=== PATIENT | female | born 1965 | race Caucasian/White ===

== ENCOUNTER 2021-06-11 04:31 | Day surgery (SDC) | payer BC ==
[2021-06-11 11:06] VITALS: BMI 28.9
[2021-06-11] MEDS ORDERED: BUPIVACAINE HCL/PF 0.5% (5MG/ML) 10 ML VIAL ONE ×2 (13:05)
[2021-06-11] MEDS ORDERED: LIDOCAINE HCL 1%, 10 MG/ML (20ML VIAL) ONE (13:05)
[2021-06-11] MEDS ORDERED: PROPOFOL 20 ML ONE ×3 (13:07→14:01)
[2021-06-11] MEDS ORDERED: SUCCINYLCHOLINE CHLORIDE 200 MG/10 ML SYRINGE ONE (13:07)
[2021-06-11] MEDS ORDERED: MIDAZOLAM HCL 2 MG/2 ML SINGLE DOSE VIAL ONE (13:07)
[2021-06-11] MEDS ORDERED: ceFAZolin 2 GRAM PREMIX BAG IVPB ONE (13:25)
[2021-06-11] MEDS ORDERED: LIDOCAINE HCL 1%, 10 MG/ML (20ML VIAL) INF ONE (13:32)
[2021-06-11] MEDS ORDERED: BUPIVACAINE HCL/PF 0.5% (5MG/ML) 10 ML VIAL IJ ONE (13:32)
[2021-06-11] MEDS ORDERED: PROMETHAZINE HCL 25 MG/1 ML VIAL IVPB PRN (14:31)
[2021-06-11] MEDS ORDERED: oxyCODONE HCL 5 MG TABLET PO PRN (14:31)
[2021-06-11] MEDS ORDERED: ONDANSETRON 4 MG/2 ML VIAL IVPUSH PRN (14:31)
[2021-06-11] MEDS ORDERED: LACTATED RINGERS SOLUTION 1,000 ML IV SCH (14:45)
[2021-06-11 16:09] VITALS: BP 121/73; PULSE 70; TEMP 97.6
== END 2021-06-11 16:30 | disposition home or self-care (01) ==
LOC: JASU-SURG 04:31
PROC: 0QSP04Z Reposition Left Metatarsal with Internal Fixation Device, Open Approach (ICD-10-PCS; 2021-06-11)
PROC: 0SGN04Z Fusion of Left Metatarsal-Phalangeal Joint with Internal Fixation Device, Open Approach (ICD-10-PCS; 2021-06-11)
PROC: 0L8W0ZZ Division of Left Foot Tendon, Open Approach (ICD-10-PCS; principal; 2021-06-11 13:00)
DX: M21.612 Bunion of left foot (principal); M20.12 Hallux valgus (acquired), left foot; M20.42 Other hammer toe(s) (acquired), left foot
CPT/HCPCS: 73630-TC-LT; 88304-TC; 88311-TC